=== PATIENT | female | born 2005 | race Caucasian/White ===

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

== ENCOUNTER 2024-01-06 10:17 | Outpatient (REF) | payer MEDICAID, SELFPAY ==
[2024-01-06 11:18] LABS: MANUAL DIFF FLAG NO
[2024-01-06 11:31] LABS: Basophils Percent Auto 0.6 % (0-2); Eosinophils Absolute Auto 0.1 X10*3/uL (0.0-0.4); Eosinophils Percent Auto 1.4 % (0-4); Hematocrit 34.9 % (37.0-47.0); Hemoglobin 11.7 g/dl (12.0-16.0); Imm Gran Abs Auto 0.01 X10*3/uL (0.00-0.03); Imm Gran Pct Auto 0.2 % (0.0-0.4); Lymphocytes Absolute Auto 1.1 X10*3/uL (1.2-4.9); Lymphocytes Percent Auto 21.4 % (20-40); Mean Corpuscular HGB Conc 33.5 g/dl (31.0-35.0); Mean Corpuscular Hemoglobin 28.4 pg (27.0-33.0); Mean Corpuscular Volume 84.7 fL (80.0-98.0); Mean Platelet Volume 9.4 fL (9.4-12.3); Monocytes Absolute Auto 0.4 X10*3/uL (0.1-1.2); Monocytes Percent Auto 8.2 % (2-11); Neutrophils Absolute Auto 3.4 x10*3/uL (2.0-8.3); Neutrophils Percent Auto 68.2 % (45-73); Platelet Count 333 X10*3/uL (160-400); Red Blood Count 4.12 X10*6/uL (4.20-5.50); Red Cell Distribution Width 12.2 % (11.0-16.0)
[2024-01-06 12:27] LABS: Alanine Aminotransferase 14 U/L (0-31); Albumin Level 4.7 g/dL (3.5-5.0); Alkaline Phosphatase 67 U/L (39-117); Anion Gap 11 (12-20); Aspartate Amino Transferase 12 U/L (5-31); Bilirubin Total 0.8 mg/dL (0.0-1.0); Blood Urea Nitrogen 7 mg/dL (9-16); Calcium 9.8 mg/dL (8.4-10.2); Carbon Dioxide 24 mmol/L (22-29); Chloride 106 mmol/L (96-108); Cholesterol 137 mg/dL (<200); Estimated Glomerular Filt Rate > 60; Glucose Random 85 mg/dL (60-115); HDL Cholesterol 36 mg/dL (>40); LDL Cholesterol Calculated 92 mg/dL (<100); Potassium 3.7 mmol/L (3.3-5.1); Sodium 137 mmol/L (135-145); Total Protein 7.9 g/dL (6.5-8.0); Triglycerides 47 mg/dL (<150)
[2024-01-06 12:45] LABS: TSH reflex Free T4 0.84 uIU/mL (0.32-4.0); Vitamin D 25-OH Total 31.1 ng/mL (>30)
[2024-01-06 14:50] LABS: Reflex LDLD? No
[2024-01-07 07:23] LABS: Syphilis Screen Nonreactive (Nonreactive)
[2024-01-07 07:28] LABS: HBS Num1 0.44 mIU/mL (0-7.99); HBc Num1 0.15 S/CO (0.00-0.79); HBsAGNum1 0.35 S/CO (0.00-0.99); HIV AB/AG Nonreactive (Nonreactive); HIV Num 1 0.05 S/CO (0.00-0.99); Hepatitis A Antibody IgM 0.15 Index (0-0.79); Hepatitis B Core Antibody Nonreactive (Nonreactive); Hepatitis B Surface Antigen Negative (Negative); ~HepC Num1 0.13 S/CO (0.00-0.79); ~Hepatitis A Antibody IgM Nonreactive (Nonreactive); ~Hepatitis B Surface Antibody NONREACTIVE (Nonreactive); ~Hepatitis C Antibody Nonreactive (Nonreactive)
== END 2024-01-06 10:18 | disposition home or self-care (01) ==
LOC: HO.HHCL 10:17
PROVIDERS: Visit Provider Internal Medicine
DX: E66.9 Obesity, unspecified (principal); Z30.09 Encounter for other general counseling and advice on contraception
CPT/HCPCS: 36415; 80053; 80061; 82306; 84443; 85025; 86704; 86706; 86709; 86780; 86803; 87340; 87389

== ENCOUNTER 2024-01-28 13:49 | Outpatient (REF) | payer MEDICAID, SELFPAY ==
[2024-01-28 14:57] LABS: Bacterial Vaginosis PCR NEGATIVE (Negative); Candida Group PCR DETECTED (Not Detect); Candida glab krusei PCR NOT DETECTED (Not Detect); Trichomonas vaginalis PCR NOT DETECTED (Not Detect)
[2024-01-28 15:28] LABS: CT PCR NOT DETECTED (Not Detect.); NG PCR NOT DETECTED (Not Detect.)
== END 2024-01-28 13:50 | disposition home or self-care (01) ==
LOC: HO.HHCLNP 13:49
PROVIDERS: Visit Provider General Practice
DX: N89.8 Other specified noninflammatory disorders of vagina (principal)
CPT/HCPCS: 0352U; 87491; 87591

== ENCOUNTER → 2024-06-25 12:17 | Outpatient (BNVA) | payer OTHER, SELFPAY | DX: S61.214A Laceration without foreign body of right ring finger without damage to nail, initial encounter (principal); W26.8XXA Contact with other sharp object(s), not elsewhere classified, initial encounter | CPT/HCPCS: 12001; 99203 ==

== ENCOUNTER → 2024-06-27 15:10 | Outpatient (BNVA) | payer OTHER, SELFPAY | PROVIDERS: Visit Provider Physician Assistant | DX: S61.214A Laceration without foreign body of right ring finger without damage to nail, initial encounter (principal); W26.8XXA Contact with other sharp object(s), not elsewhere classified, initial encounter | CPT/HCPCS: 99213 ==

== ENCOUNTER 2024-07-04 11:07 | Emergency (ER) | payer MEDICAID, SELFPAY ==
--- NOTE | 2024-07-04 | ECG_ITS ---
Test Reason : CHEST PAIN Blood Pressure : */* mmHG Vent. Rate : 109 BPM Atrial Rate : 109 BPM P-R Int : 178 ms QRS Dur : 76 ms QT Int : 320 ms P-R-T Axes : 51 22 55 degrees QTcB Int : 430 ms Sinus tachycardia Otherwise normal ECG When compared with ECG of 12-Apr-2019 11:25, PREVIOUS ECG IS PRESENT Referred By: Generic ED Physician Electronically Signed By: PATT NORMAN MD
--- NOTE | ~2024-07-04 | XR_ITS ---
EXAMINATION: XR CHEST CLINICAL INFORMATION: cough COMPARISON: None available. TECHNIQUE: 2 views of the chest were obtained. FINDINGS: No consolidation, pleural effusion or pneumothorax. Cardiomediastinal silhouette size is normal. Osseous structures are intact. XR/XR chest 2V IMPRESSION: No acute airspace disease. Electronically signed by: West Sellers MD 07/04/2024 12:09 PM [facility]
[2024-07-04 11:43] VITALS: BP 115/78; PULSE 98; RESP 18; TEMP 37.7; O2SAT 100; BMI 35.7
--- NOTE | 2024-07-04 11:44 | ED_ITS ---
HPI - Chest Pain General Chief Complaint: Upper Respiratory Symptoms Stated Complaint: Cp, hurts to breath Time Seen by Provider: 07/04/24 15:50 Source: patient, RN notes reviewed and old records reviewed Mode of arrival: ambulatory History of Present Illness ED Provider: Mariella Mckoy PA-C HPI narrative: 18-year-old female with no significant past medical history presenting to the ED complaining of cough, chest discomfort/SOB associated with coughing, fatigue, generalized weakness, myalgias, chills, sore throat since last night. Also reports right axilla cyst x1 week which is growing. Denies fever, abdominal pain, recent travel, difficulty or inability to swallow, drainage from cyst Related Data Previous Rx's ?Medication ?Instructions ?Recorded cephalexin 500 mg capsule 500 mg PO QID 7 days #28 caps 07/04/24 doxycycline hyclate 100 mg tablet 100 mg PO BID 7 days #14 tabs 07/04/24 oseltamivir 75 mg capsule (Tamiflu) 75 mg PO Q12H 5 days #10 caps 07/04/24 Allergies Allergy/AdvReac Type Severity Reaction Status Date / Time Seasonal Allergies Allergy Mild Nasal Verified 07/04/24 11:47 congestion Review of Systems 2 Review of Systems: Yes all other systems are reviewed and are negative Constitutional: Constitutional: Reports as per [facility] Past Medical History Attestation statement: The following information was validated with the patient. Source: old records reviewed Social History Social History Household Members Other:: Lives w/ mom, dad, brothers - 15, 22 Physical Exam 2 Vital Signs: Vital Signs: Last Vital Signs Temp 99.8 F 07/04/24 11:43 Pulse 98 07/04/24 11:43 Resp 18 07/04/24 11:43 BP 115/78 07/04/24 11:43 Pulse Ox 100 07/04/24 11:43 O2 Del Method Room Air 07/04/24 11:43 BMI result Body Mass Index 35.7 Const: General: cooperative, healthy appearing and no acute distress O rientation/consciousness: patient oriented x3 Limitations: no limitations HEENT: Head: Yes normal to inspection and Yes atraumatic Ears: hearing grossly normal bilaterally and external ears normal General nose exam: Normal external nose present Face and sinus: Yes normal facial exam Mouth: Normal oral and palatal mucosa present and no drooling Throat: Yes posterior oropharynx normal, Yes tonsils normal, Yes uvula midline, No uvula laterally displaced and No uvular edema Eyes: General: appearance normal, both eyes and all related structures EOM: EOMs intact bilaterally Neck: Neck: Yes normal visual inspection and Yes no meningeal signs Resp: Effort & Inspection: normal respiratory effort and no respiratory distress Auscultation: clear to auscultation bilaterally, no crackles, no rales, no rhonchi and no wheezes Cardio: Rate: regular rate Heart sounds: S1 normal heart sound present and S2 normal heart sound present Skin: Other: + small indurated abscess noted to right axilla. Nontender. No overlying erythema/warmth. No fluctuance. Rashes: no rashes Wounds: no wounds Neuro: General: patient oriented x3, tone normal and no meningeal signs C ranial nerves: Yes CN's II-XII intact bilaterally Gait exam (Neuro): Normal gait present Extrem: General: Yes normal to inspection Course Course Course Narrative: This is a Rapid Medical Exam performed in triage by Mariella Mckoy PA-C. Full HPI, ROS and PE to be performed by primary ED provider. 18 yo F presenting to the ED c/o chest pain worse w/coughing/breathing, fatigue, gen weakness, myalgias, chills, sob, sore throat x last night. Also reports right armpit cyst x1 week PE: Uvula midline. Talking in complete sentences, nontoxic appearing. + indurated abscess noted to right axilla. No overlying erythema. Mildly tender to palpation Plan: EKG, labs, CXR, rapid strep, SARs -1550--labs reassuring including negative troponin. -influenza a positive > patient is interested in Tamiflu -chest x-ray unremarkable > with shared decision-making will initiate patient on p.o. antibiotics for indurated abscess and avoid I&D at this time. Recommended warm compresses at home and close follow-up. Results discussed with patient including worrisome signs and symptoms and strict return precautions, and when to return to the emergency department. They verbalized understanding and feel safe for discharge at this time. Medical Decision Making Medical Decision Making [facility] Narrative: 18-year-old female with no significant past medical history presenting to the ED complaining of cough, chest discomfort & SOB associated with coughing, fatigue, generalized weakness, myalgias, chills, sore throat since last night. Also reports right axilla cyst x1 week which is growing. On exam vital signs stable, NAD, nontoxic appearing physical exam as noted above. Concern for viral illness vs pneumonia/bronchitis. Lower suspicion for ACS/PE. Concern for indurated abscess. No overlying cellulitis at this time, I&D not indicated at this time Plan: EKG, labs, viral testing, CXR, rapid strep Please refer to course for remaining clinical decision making, interpretation of labs/imaging results, and discussions with consultants and/or family members. Differential Diagnosis Differential Diagnoses: The differential diagnosis associated with the presentation includes As above Admission/Observation Consideration of admission/observation: Escalation of care including admission/observation considered Lab Data MDM Lab Attestation statement: I reviewed the patient's lab results. 07/04/24 12:36 07/04/24 12:36 Labs: Lab Results 07/04/24 07/04/24 Range/Units 12:35 12:36 WBC 4.1 L (4.8-10.8) X10*3/uL RBC 3.86 L (4.20-5.50) X10*6/uL Hgb 11.3 L (12.0-16.0) g/dl Hct 33.1 L (37.0-47.0) % MCV 85.8 (80.0-98.0) fL MCH 29.3 (27.0-33.0) pg MCHC 34.1 (31.0-35.0) g/dl RDW 12.2 (11.0-16.0) % Plt Count 264 (160-400) X10*3/uL MPV 8.6 L (9.4-12.3) fL Immature Gran % (Auto) 0.2 (0.0-0.4) % Neut % (Auto) 82.6 H (45-73) % Lymph % (Auto) 7.0 L (20-40) % Lipscomb % (Auto) 9.2 (2-11) % Eos % (Auto) 0.5 (0-4) % Baso % (Auto) 0.5 (0-2) % Lymph # (Auto) 0.3 L (1.2-4.9) X10*3/uL Lipscomb # (Auto) 0.4 (0.1-1.2) X10*3/uL Eos # (Auto) 0.0 (0.0-0.4) X10*3/uL Baso # (Auto) 0.0 (0.0-0.2) X10*3/uL Abs Immat Gran (auto) 0.01 (0.00-0.03) X10*3/uL Absolute Neuts (auto) 3.4 (2.0-8.3) x10*3/uL Absolute Nucleated RBC 0.000 (0.0-0.012) X10*3/uL Nucleated RBC % (auto) 0.0 (0.0-0.2) /100WBC PT 13.2 H (10.9-12.4) SEC INR 1.1 (0.9-1.1) Sodium 137 (135-145) mmol/L Potassium 3.8 (3.3-5.1) mmol/L Chloride 106 (96-108) mmol/L Carbon Dioxide 24 (22-29) mmol/L Anion Gap 11 L (12-20) BUN 6 L (9-16) mg/dL Creatinine 0.67 (0.5-1.4) mg/dL Estim Creat Clear Calc 161.4 Estimated GFR > 60 Random Glucose 87 (60-115) mg/dL Calcium 9.4 (8.4-10.2) mg/dL Magnesium 1.8 (1.6-2.6) mg/dL Total Bilirubin 0.4 (0.0-1.0) mg/dL Direct Bilirubin 0.2 (0.0-0.5) mg/dL AST 15 (5-31) U/L ALT 13 (0-31) U/L Alkaline Phosphatase 61 (39-117) U/L Troponin I High Sens < 2.7 (<3.5-17.0) ng/L Total Protein 7.9 (6.5-8.0) g/dL Albumin 4.5 (3.5-5.0) g/dL Influenza Type A (PCR) POSITIVE A (Negative) Influenza Type B (PCR) NEGATIVE (Negative) RSV RNA Qual (PCR) NEGATIVE (Negative) SARS-CoV-2 RNA (RT-PCR) NEGATIVE (Negative) S. pyogenes GrpA ANDREW Negative (Negative) Independent Interpretation I performed an independent interpretation of an: EKG (My Interpretation EKG sinus tachycardia rate of 109. DC interval 170. QRS 76. ) and Plain X-Ray Radiology Impression Discussion of test interpretation with radiology: I have reviewed the radiologist's reading. External Record Review External record reviewed: Inpatient record, Office record, Outpatient record, Prior outpatient labs, Prior outpatient radiology, Primary care record and Outside ED record Tests considered The following testing was considered but not selected: As above Prescription Management I considered prescription management with: Pain Medication, Antiviral and Antibiotic Chronic Conditions Patient?s care impacted by: Other Social Determinants Patient?s care significantly limited by Social Determinants of Health including: Other Social Determinant of Health Discharge Plan Discharge Clinical Impression: Influenza, Abscess Patient Disposition: Home, Self-Care Instructions: Influenza (DC), Abscess (ED) Additional Instructions: You have the flu You are contagious. Wear a mask. Tamiflu as an antiviral medication, please take as prescribed Make sure you are staying hydrated. Drink plenty of fluids. Rest Alternate Tylenol and Motrin at home as needed for body aches and fever Follow-up with your doctor. If symptoms persist or worsen return to the emergency department *If you are a child & not tolerating liquid or urinating for more than 6 hours, or fevers are uncontrolled with medications at home, return to the emergency department* Your blood work was reassuring Please take doxycycline and Keflex which are antibiotics for your abscess. Apply warm compresses 2 to 3 times a day. If area continues to grow, turns red, turns to frias return to the emergency department Prescriptions: New oseltamivir [Tamiflu] 75 mg capsule 75 mg PO Q12H 5 Days Qty: 10 0RF cephalexin 500 mg capsule 500 mg PO QID 7 Days Qty: 28 0RF doxycycline hyclate 100 mg tablet 100 mg PO BID 7 Days Qty: 14 0RF Referrals: Physician,Unknown J [Primary Care Provider] - 3 days Stand Alone Forms: Work/School Release Print Language: Arabic
[2024-07-04 12:40] LABS: MANUAL DIFF FLAG NO
[2024-07-04 12:42] LABS: Basophils Percent Auto 0.5 % (0-2); Eosinophils Percent Auto 0.5 % (0-4); Hematocrit 33.1 % (37.0-47.0); Hemoglobin 11.3 g/dl (12.0-16.0); Imm Gran Abs Auto 0.01 X10*3/uL (0.00-0.03); Imm Gran Pct Auto 0.2 % (0.0-0.4); Lymphocytes Absolute Auto 0.3 X10*3/uL (1.2-4.9); Mean Corpuscular HGB Conc 34.1 g/dl (31.0-35.0); Mean Corpuscular Hemoglobin 29.3 pg (27.0-33.0); Mean Corpuscular Volume 85.8 fL (80.0-98.0); Mean Platelet Volume 8.6 fL (9.4-12.3); Monocytes Absolute Auto 0.4 X10*3/uL (0.1-1.2); Monocytes Percent Auto 9.2 % (2-11); Neutrophils Absolute Auto 3.4 x10*3/uL (2.0-8.3); Neutrophils Percent Auto 82.6 % (45-73); Platelet Count 264 X10*3/uL (160-400); Red Blood Count 3.86 X10*6/uL (4.20-5.50); Red Cell Distribution Width 12.2 % (11.0-16.0); White Blood Count 4.1 X10*3/uL (4.8-10.8)
[2024-07-04 12:47] LABS: INTERNATIONAL NORM RATIO 1.1 (0.9-1.1); Prothrombin Time 13.2 SEC (10.9-12.4)
[2024-07-04 12:55] LABS: IDNOW Serial# 58CA691E; Strep A Nucleic Acid Negative (Negative)
[2024-07-04 12:57] LABS: Alanine Aminotransferase 13 U/L (0-31); Albumin Level 4.5 g/dL (3.5-5.0); Alkaline Phosphatase 61 U/L (39-117); Anion Gap 11 (12-20); Aspartate Amino Transferase 15 U/L (5-31); Bilirubin Direct 0.2 mg/dL (0.0-0.5); Bilirubin Total 0.4 mg/dL (0.0-1.0); Blood Urea Nitrogen 6 mg/dL (9-16); Calcium 9.4 mg/dL (8.4-10.2); Carbon Dioxide 24 mmol/L (22-29); Chloride 106 mmol/L (96-108); Creatinine Clr Calc Pharmacy 161.4; Estimated Glomerular Filt Rate > 60; Glucose Random 87 mg/dL (60-115); Magnesium 1.8 mg/dL (1.6-2.6); Potassium 3.8 mmol/L (3.3-5.1); Sodium 137 mmol/L (135-145); Total Protein 7.9 g/dL (6.5-8.0)
[2024-07-04 13:05] LABS: Troponin-I High Sensitivity < 2.7 ng/L (<3.5-17.0)
[2024-07-04 13:19] LABS: Influenza A PCR POSITIVE (Negative); Influenza B PCR NEGATIVE (Negative); Resp Syncy Virus RNA Qual PCR NEGATIVE (Negative); SARS COV2 PCR INHOUSE NEGATIVE (Negative)
[2024-07-04 16:09] VITALS: BP 116/77; PULSE 92; RESP 18; TEMP 37; O2SAT 97
--- OUTSIDE RECORDS SUMMARY | 2024-07-04 19:06 | XMS_ITS | Clinical Summary ---
Author Organization [employer] Address [address] [facility] [address] [place] [address] Care Team Providers Care Professor Of Languages Name Role Phone Isa Cabrera MD Primary Care Provider + Allergies No known active allergies Medications polyethylene glycol, PEG, 3350 (MiraLax) 17 GM/SCOOP powder 1 capful mixed in 8oz of fluid. drink immediately after. Do this once a day PRN constipation 09/02/19 21 Active fluticasone (Flonase Allergy Relief) 50 MCG/ACT nasal spray Administer 1 spray into each nostril in the morning. Shake gently. Before first use, prime pump. After use, clean tip and replace cap. 16 g 4 10/21/19 23 Active acetaminophen (Tylenol) 500 MG tablet Take 2 tablets (1,000 mg) by mouth every 6 (six) hours if needed for moderate pain or fever for up to 25 doses. 50 tablet 10/21/19 23 Active Additional Information Patient not taking.Reported on 03/20/2024 ulipristal (Xena) 30 mg tabletIndications :Encounter for prescription of emergency contraception TAKE 1 TABLET SOON POSSIBLE WITHIN 5 DAYS AFTER UNPROTECTED SEX OR IF YOU HAD A CONTROL FAILURE. MAY BE TAKEN WITH OR WITHOUT FOOD. 1 tablet 3 11/10/19 24 Active Additional Information Patient not taking.Reported on 04/12/2024 norethindrone (Micronor) 0.35 MG tablet Take 1 tablet (0.35 mg) by mouth Once per day. 90 tablet 3 01/06/20 24 025 Active Additional Information Patient not taking.Reported on 04/12/2024 cetirizine (ZyrTEC) 10 MG tabletIndications :Strep pharyngitis Take 1 tablet (10 mg) by mouth Once per day. 30 tablet 5 04/06/20 24 025 Active Additional Information Patient not taking.Reported on 05/04/2024 Active Problems Problem Noted Date Diagnosed Date Anemia 05/04/2024 Assessment & Plan (05/04/2024 9:21 PM EST): Order b12, ferritin and repeat CBC in 1-2m Vitamin D deficiency 01/28/2024 Encounter for education about contraceptive use 01/06/2024 Assessment & Plan (01/06/2024 10:18 AM EDT): Discussed protective sex at all times, will have STI testing. Discussed hormonal and non hormonal contraceptive methods, she was given information today to take home. She wants to start Progesterone only pill, advised to start it on the first day of her period or the Tuesday after. Continue to use condoms for STI protection and during first week of OCPs. She has Rx for Xena if she happens to be non compliant with OCP. Obesity (BMI 30-39.9) 01/06/2024 Assessment & Plan (05/04/2024 9:21 PM EST): Went over POC from last visit, she's planning to start GYM, still doesn't want nutrition appt FU in 6 mo Assessment & Plan (01/06/2024 10:16 AM EDT): Discussed re weight reduction options including exercise, life style modifications and diet. 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 Recommended to decrease soda and sugary beverage consumption, increase protein intake with meals (at least 1 portion of protein with each meal) to assist with satiety, increase dietary fiber Recommended at least 150 min/week of moderate intensity exercise. Follow up in 2 months. Constipation 07/29/2022 Blood in urine 07/29/2022 BMI (body mass index), pediatric, 95-99% for age 0307/29/2022 Encounters Date Type Department Care Team Description 07/02/2024 Telephone [facility] [address] [place] [phone] Isa Cabrera MD Nurse Triage 05/05/2024 10:20 AM EST Office Visit [facility] [place] [address] [place] [address] Black Oneal MD Acute non-recurrent maxillary sinusitis (Primary Dx) 05/04/2024 10:30 AM EST Office Visit [facility] [address] [place] [address] Estrellita, Omar 04/12/2024 9:00 AM EST Office Visit [facility] [address] [place] [address] Estrellita, Omar 04/06/2024 1:20 PM EST Office Visit [facility] [address] [address] Lesage, Margaret, RADIO DIRECTOR Strep pharyngitis 04/06/2024 Travel from Last 3 Months Immunizations Name Administration Dates Next Due DTaP 11/12/2008, 6,03/02/2005,12/29,2004 HPV 9-Valent 01/21/2016 HPV, Unspecified 01/27/2017 Hep A, ped/adol, 2 dose 04/12/2006,09/14/2005 Hep B, Adolescent or Pediatric 03/02/2005,2004,2004 HiB, unspecified 11/30/2005,2004 Hib (PRP-T) 2004 IPV 11/12/2008, 5,2004,10/27 Influenza Injectable Quadriv alant Preservative Free IIV4 MDCK 02/20/2020 Influenza injectable quadriv alent preservative free 01/27/2021,06/07/2019,06/06/2018 Influenza, injectable, quadr ivalent, preservative free, pediatric 01/27/2017,02/06/2013,01/18/2011,04/08,03/02/2005 MMR 11/12/2008,09/14/2005 Meningococcal MCV4P ACYW-135 01/27/2021,01/21/20 16 Pneumococcal Conjugate PCV 13 03/02/2006 ,11/30/2005,2004,10/27 Tdap 01/21/2016 Varicella 11/12/2008,09/14/2005 Family History Medical History Relation Name Comments discoid lupus Brother Hypertension Father Diabetes Paternal Grandmother Relation Name Status Comments Brother Father Paternal Grandmother Social History Tobacco Use Types Packs/Day Years Used Date Smoking Tobacco: Never Passive Smoke Exposure: Never Smokeless Tobacco: Never Tobacco Cessation:Counseling Given: Not Answered Alcohol Use Standard Drinks/Week Comments Never 0 (1 standard drink = 0.6 oz pur e alcohol) Depression Answer Date Recorded Patient Health Questionnaire-9 Score 10 01/06/2024 Patient Health Questionnaire-9 Score 10 01/06/2024 Last PHQ-9: Questionnaire Data Not on file 0 01/06/2024 Housing Stability Answer Date Recorded What is your housing situation today? I have [facility] 01/06/[address] you li ve. Do you have problems with any of the following? None of the above 01/06/2024 Food Insecurity Answer Date Recorded Within the past 12 months, y ou worried that your food would run out before you got money to buy more: Never True 01/06/2024 Within the past 12 months,th e food you bought just didn't last and you didn't have enough money to get more: Never True 10/2023 Transportation Answer Date Recorded In the past 12 months, has l ack of transportation kept you from medical appts, meetings, work or from getting things needed for daily living? No 01/06/2024 Utilities Answer Date Recorded In the past 12 months, has t he electric, gas, oil or water company threatened to shut off services in your home? No 01/06/2024 Depression Answer Date Recorded Patient Health Questionnaire-2 Score 4 01/06/2024 Internet Access Answer Date Recorded Internet Access Q1 No 01/06/2024 Internet Access Q2 I do not want or need it 10/2023 Comments No Sex and Gender Information Value Date Recorded Sex Assigned at Female 03/01/2022 10:34 AM EDT Legal Sex Female 10:34 AM EDT Gender Identity Female 03/01/2022 10:34 AM EDT Sexual Orientation Straight 07/30/2022 4: 27 PM EDT Last Filed Vital Signs Vital Sign Reading Time Taken Comments Blood Pressure 110/60 05/05/2024 9:33 AM EST Pulse 76 05/05/2024 9:33 AM EST Temperature 37.1 ??C (98.7 ??F) 05/05/2024 9:33 AM ES T Respiratory Rate 20 05/05/2024 9:33 AM EST Oxygen Saturation 96% 04/06/2024 1:10 PM EST Inhaled Oxygen Concentration - - Weight 103 kg (227 lb 8 oz) 05/05/2024 9:[address] Height 167.6 cm (5' 6 ) 05/05/2024 9:33 AM EST Body Mass Index 36.72 05/05/2024 9:33 AM EST Plan of Treatment Health Maintenance Due Date Last Done Comments Family Planning (PISQ) 08/28/2019 COVID-19 Vaccine ( season) 2024 06/27/2021, 01/12/2021, 12/02/2020 Influenza Vaccine (#1) 2024 , 02/20/2020, 06/07/2019, Additional history exists Depression Monitoring (PHQ-9) 07/05/2024 01/06/2024, 01/06/2024 Fluoride Varnish 09/17/2024 03/20/2024 Dental Oral Exam 09/18/2024 03/20/2024 Dental Prophylaxis 09/18/2024 03/20/2024 Depression Screening 01/05/2025 01/06/2024, 01/06/20 24 SDOH Screening 01/05/2025 01/06/2024 Chlamydia and Gonorrhea Screening 01/27/2025 01/28/2024, 01/29/2021 Alcohol/Substance Use Screening 03/09/2025 03/09/2024 Dental X-Ray: Bitewings 03/21/2025 03/20/2024 Tobacco Screening 05/05/2025 05/05/2024 DTaP/Tdap/Td Vaccines (7 - Td or Tdap) 01/20/2026 01/21/2016, 11/12/2008, 11/30/2005, Additional history exists Dental X-Ray: Full Mouth 03/21/2027 03/20/2024 Zoster Vaccines (1 of 2) 2054 RSV Patients and Patients Aged 60 years or older (1 - 1-dose 75+ series) 08/28/2079 Hepatitis B Vaccines Completed 03/02/2005, 2004, 2004 HIB Vaccines Completed 11/30/2005, 12/02, 2004 Pneumococcal Vaccine: Pediatrics (0 to 5 Years) and At-Risk Patients (6 to 49) Years) Completed 03/02/2006, 11/30/2005, 2004, Additional history exists Hepatitis A Vaccines Completed 04/12/2006, 09/15/19 06 IPV Vaccines Completed 11/12/2008, 05/2004, 2004, Additional history exists MMR Vaccines Completed 11/12/2008, 09/14/2005 Varicella Vaccines Completed 11/12/2008, 09/14/2005 HPV Vaccines Completed 01/27/2017, 01/21/2016 Meningococcal Vaccine Completed 01/27/2021, 016 HIV Screening Completed 01/06/2024 Hepatitis C Screening Completed 01/06/2024 RSV under 20 months Aged Out No longe r eligible based on patient's age to complete this topic Rotavirus Vaccines Aged Out No longer eligible based on patient's age to complete this topic Procedures Procedure Name Priority Date/Time Associated Diagnosis Comments POCT COVID-19 AG GHOTRA ID NOW Routine 05/05/2024 9:51 AM EST Acute non-recurrent maxillary sinusitis POCT INFLUENZA A (ID NOW RAPID MOLECULAR) Routine 05/05/2024 9:51 AM EST Acute non-recurrent maxillary sinusitis POCT INFLUENZA B (ID NOW RAPID MOLECULAR) Routine 05/05/2024 9:50 AM EST Acute non-recurrent maxillary sinusitis 29 DO RESIN-BASED COMPOSITE - 2 SURF, POSTERIOR Routine 05/04/2024 10:30 AM EST 30 DO RESIN-BASED COMPOSITE - 2 SURF, POSTERIOR Routine 04/12/2024 9:00 AM EST POCT INFLUENZA B (ID NOW RAPID MOLECULAR) Routine 04/06/2024 1:43 PM EST Strep pharyngitis POCT INFLUENZA A (ID NOW RAPID MOLECULAR) Routine 04/06/2024 1:43 PM EST Strep pharyngitis POC GHOTRA ID NOW STREP A Routine 04/06/2024 1:43 PM EST Strep pharyngitis POCT RAPID COVID ANTIGEN Routine 04/06/2024 1:43 PM EST Strep pharyngitis PROPHYLAXIS - ADULT Routine 03/20/2024 9 :00 AM EST INTRAORAL - COMPLETE SERIES OF RADIOGRAPHIC IMAGES Routine 03/20/2024 9:00 AM EST COMPREHENSIVE ORAL EVALUATION - NEW OR ESTABLISHED PATIENT Routine 03/20/2024 9:00 AM EST TOPICAL APPLICATION OF FLUORIDE VARNISH Routine 03/20/2024 9:00 AM EST CHLAMYDIA/N. GONORRHOEAE RNA, TMA, UROGENITAL Routine 01/28/2024 9:47 AM EDT Discharge from the vagina HEPATITIS PANEL, GENERAL Routine 01/06/2024 10:18 AM EDT Encounter for education about contraceptive use HIV 1/2 ANTIGEN/ANTIBODY, FOURTH GENERATION W/RFL Routine 01/06/2024 10:18 AM EDT Encounter for education about contraceptive use from Last 3 Months or Most Recently Relevant to Health Maintenance Results * POCT Rapid Influenza A GHOTRA ID NOW (05/05/2024 9:51 AM EST) Only the most recent of2 resultswithin the time period is included. Pathologist [facility] Influenza A Negative Negative, Indeterminate [facility] QC Media Lot # [id number] [facility] Lot# Expiration Date [id number] [facility] Swab 05/05/2024 9:51 AM EST Black Oneal MD POINT OF CARE TEST ENTER/EDIT OR DERABLES Final Result [facility] [address] [place] [phone] * POCT Rapid Covid-19 GHOTRA ID NOW (05/05/2024 9:51 AM EST) Pathologist [facility] Coronavirus Antigen PCR Negative Negative, Indeterminate, None Detected, Invalid, Specimen unsatisfactory for evaluation, Weakly Positive QC Media Lot # [id number] Lot# Expiration Date Swab 05/05/2024 9:51 AM EST Black Oneal MD POINT OF CARE TEST ENTER/EDIT OR DERABLES Final Result * POCT Rapid Influenza B GHOTRA ID NOW (05/05/2024 9:50 AM EST) Only the most recent of2 resultswithin the time period is included. [facility] Influenza B Negative Negative, Indeterminate [facility] QC Media Lot # [id number] [facility] Lot# Expiration Date [facility] Swab 05/05/2024 9:50 AM EST Black Oneal MD POINT OF CARE TEST ENTER/EDIT OR DERABLES Final Result Performing Organization Address City/[facility]/ZIP Co de Phone Number [facility] [address] [place] [address] [phone] * (ABNORMAL) POCT rapid strep A manually resulted (04/06/2024 1:43 PM EST) [facility] Rapid Strep A Screen Positive( A) Negative, None Detected [facility] Swab 04/06/2024 1:43 PM EST [facility] RADIO DIRECTOR POINT OF CARE TEST ENTER/EDIT ORDERABLES Final Result Performing Organization Address [facility] Co de Phone Number [facility] [address] [place] [phone] * POCT Rapid COVID Ag (04/06/2024 1:43 PM EST) [facility] Rapid COVID Ag Negative [facility] Swab 04/06/2024 1:43 PM EST [facility] RADIO DIRECTOR POINT OF CARE TEST ENTER/EDIT ORDERABLES Final Result [facility] [address] [place] [phone] * Chlamydia/N. Gonorrhoeae RNA, TMA, Urogenitial (01/28/2024 9:47 AM EDT) CT PCR NOT DETECTED Not Detect. [facility] Comment:A not detected test result does not exclude the possibilityof infection because test results can be affected byimproper specimen collection, concurrent antibiotic therapy,or the number of organisms in the specimen which may bebelow the sensitivity of the test. As with many diagnostictests, results from the Xpert CT/NG assay should beinterpreted in conjunction with other laboratory andclinical data available to the clinician.Xpert CT/NG performance has not been evaluated in patientsless than 14 years of age. The assay should not be used forthe evaluationof suspected sexual abuse or for other medico-legalindications. Additional testing is recommended in anycircumstance when false positive or false negative resultscould lead to adverse medical, social or psychologicalconsequences. NG PCR NOT DETECTED Not Detect. [facility] Comment:A not detected test result does not exclude the possibilityof infection because test results can be affected byimproper specimen collection, concurrent antibiotic therapy,or the number of organisms in the specimen which may bebelow the sensitivity of the test. As with many diagnostictests, results from the Xpert CT/NG assay should beinterpreted in conjunction with other laboratory andclinical data available to the clinician.Xpert CT/NG performance has not been evaluated in patientsless than 14 years of age. The assay should not be used forthe evaluationof suspected sexual abuse or for other medico-legalindications. Additional testing is recommended in anycircumstance when false positive or false negative resultscould lead to adverse medical, social or psychologicalconsequences. Swab Vaginal structure / Unknown 01/28/2024 9:47 AM EDT 01/28/2024 1:52 PM EDT Narrative [facility] - 01/28/2024 3:28 PM EDT Vaginal us Marlene Dueñas MD LAB MICROBIOLOGY - GENERAL ORD ERABLES Final Result Performing Organization Address [facility] Co de Phone Number [facility] [address] [place] [phone] * Hepatitis Panel, General (01/06/2024 10:18 AM EDT) Hepatitis A IgM Nonreactive Nonreactive [facility] Comment:IgM antibodies to RAMIREZ V not detected; does not exclude earlyacute or recovered HAV infection. ~Hepatitis B Surface Antibody NONREACTIVE Nonreactive [facility] Comment:Nonreactive: < 8.00 mIU/mL Hepatitis B Core Antibody Nonreactive Nonreactive [facility] Hepatitis C Antibody Nonreactive Nonreactive [facility] Comment:Antibodies to HCV no t detected; does not exclude early acuteHCV infection. Hepatitis B Surface Ag Negative Negative [facility] Blood 01/06/2024 10:1 8 AM EDT 01/06/2024 11:19 AM EDT us Isa Cabrera MD LAB BLOOD ORDERABLES Fin al Result Performing Organization Address [facility] Co de Phone Number [facility] [address] [place] [phone] * HIV-1/2 Antigen and Antibodies, Fourth Generation, with Reflexes (01/06/2024 10:18 AM EDT) HIV AB/AG Nonreactive Nonreactive [facility] Comment:HIV-1 p24 Ag and/or HIV-1/HIV-2 Ab not detected.A test result that is nonreactive does not exclude thepossibility of exposure to or infection with HIV-1 and/orHIV-2. Nonreactive results in this assay for individualswith prior exposure to HIV-1 and/or HIV-2 may be due toantigen and antibody levels that are below the limit ofdetection of this assay.The Bubbles HIV Ag/Ab Combo assay result andsupplemental assay results should be interpreted inconjunction with the patient's clinical presentation,history and other laboratory results. If the results areinconsistent with clinical evidence, additional testing issuggested to confirm the result. Blood Venous blood specimen / Unknown 01/06/2024 10:18 AM EDT 01/06/2024 11:19 AM EDT Isa Cabrera MD LAB BLOOD ORDERABLES Fin al Result [facility] [address] [place] [phone] from Last 3 Months or Most Recently Relevant to Health Maintenance Insurance [employer] [facility] Care Teams Professor Of Languages Relationship Specialty Start Date End Date Isa Cabrera MD [address] [place] [phone] PCP - General Internal Medicine 11/11/23
--- OUTSIDE RECORDS SUMMARY | 2024-07-04 19:06 | XMS_ITS | Encounter Summary ---
Author Organization [employer] [facility] Address [address] [place] [address] [address] [place] [address] Care Team Providers Care Television News Photographer Name Role Phone Cindy Kruger MD Primary Care Provider [phone] Cindy Kruger MD Primary Care Provider [phone] Ias Cabrera MD Primary Care Provider + Encounter Details Date Type Department Care Team (Late st Contact Info) Description 05/20/2022 Telephone [facility] [address] [place], [place] [phone] Cindy Kruger MD [address] [place] [address] [phone] Social History Tobacco Use Types Packs/Day Years Used Date Smoking Tobacco: Never Assessed Comments Unknown Sex and Gender Information Value Date Recorded Sex Assigned at Female 03/01/2022 10:34 AM EDT Legal Sex Female 10:34 AM EDT Gender Identity Female 03/01/2022 10:34 AM EDT Sexual Orientation Straight 07/30/2022 4: 27 PM EDT documented as of this encounter Plan of Treatment Not on file documented as of this encounter Visit Diagnoses Not on filedocumented in this encounter Care Teams Television News Photographer Relationship Specialty Start Date End Date Cindy Kruger MD [address] [place] [address] [phone] PCP - General Pediatrics 08/16/18 06/02/23 Cindy Kruger MD [address] [place] [address] [phone] PCP - General Pediatrics 06/03/23 11/10/23 Isa Cabrera MD [address] [place] [phone] PCP - General Internal Medicine 11/11/23 documented as of this encounter
--- OUTSIDE RECORDS SUMMARY | 2024-07-04 19:06 | XMS_ITS | Encounter Summary ---
Author Organization [employer] [facility] Address [address] [facility] [address] [place] [address] Care Team Providers Care World History Teacher Name Role Phone Isa Cabrera MD Primary Care Provider + Reason for Visit * Reason Onset Date Comments Nurse Triage 07/02/2024 Encounter Details Date Type Department Care Team ([facility] st Contact Info) Description 07/02/2024 Telephone [facility] [address] [place] [address] Isa Cabrera MD [address] [place] [address] Nurse Triage Social History Tobacco Use Types Packs/Day Years Used Date Smoking Tobacco: Never Passive Smoke Exposure: Never Smokeless Tobacco: Never Alcohol Use Standard Drinks/Week Comments Never 0 [...] PM EDT documented as of this encounter Miscellaneous Notes * Telephone Encounter - Letha Dhaliwal RN - 07/02/2024 11:50 AM EST Call returned to Carina Schumacher to triage below. Reports having an abscess under right axilla x 1 week. Per pt area is pink and warm to touch. Per pt tender to touch. Per pt its very firm. Pt denies any other swollen lymph nodes. Pt daniel any fever. Pt offered appt today, pt declines due to work. Agrees to seek [facility] tomorrow . Reviewed [facility] operating hours and that wait times vary. Reviewed home care advise, ER precautions and reasons to call back. Protocol Used: Skin Lump or Localized Swelling (Adult) Protocol-Based Disposition: See in Office or Video Visit Today Video visit offer not recorded Positive Triage Question: * Swelling is painful to touch and no fever * All higher-acuity triage questions were negative Care Advice Discussed: * Reasons To Call Back - Fever occurs - Spreading redness occurs - You become worse * Telephone Encounter - Tiffani Chirinos - 07/02/2024 11:24 AM EST Symptom: Abscess - Caller Reports Outcome: Schedule a same-day appointment or talk to a nurse or provider today Reason: Caller denied all higher acuity questions The caller accepted this outcome. Contact pt at [phone] documented in this encounter Plan of Treatment Not on file documented as of this encounter Visit Diagnoses Not on filedocumented in this encounter Additional Health Concerns Assessment Noted Time PHQ-9 Depression Total Score: 10 024 9:16 AM EDT documented as of this encounter Care Teams World History Teacher Relationship Specialty Start Date End Date Isa Cabrera MD [address] [place] [phone] PCP - General Internal Medicine 11/11/23 documented as of this encounter
--- OUTSIDE RECORDS SUMMARY | 2024-07-04 19:06 | XMS_ITS | Encounter Summary ---
Author Organization [facility] [employer] [facility] Address [address] [place] [address] Care Team Providers Care Financial Project Manager Name Role Phone Isa Cabrera MD Primary Care Provider + Encounter Details Date Type Department Care Team (Late st Contact Info) Description 01/27/2024 Telephone [facility] [address] [place] [address] Isa Cabrera MD [address] [place], [place] [phone] Social History Tobacco Use Types Packs/Day Years Used Date Smoking Tobacco: Never Smokeless Tobacco: Never Alcohol Use Standard [...] not want or need it 10/2023 Comments Unknown Sex and Gender Information Value [...] documented as of this encounter Care Teams Financial Project Manager Relationship Specialty Start Date End Date Isa Cabrera MD [address] [place] [phone] PCP - General Internal Medicine 11/11/23 documented as of this encounter
== END 2024-07-04 16:09 | disposition home or self-care (01) ==
PROVIDERS: Physician Assistant; Emergency Provider Emergency Medicine
DX: J10.1 Influenza due to other identified influenza virus with other respiratory manifestations (principal); L02.411 Cutaneous abscess of right axilla
CPT/HCPCS: 0241U; 36415; 71046; 80048; 80076; 83735; 84484; 85025; 85610; 87651; 93005; 99283

== ENCOUNTER → 2024-07-04 11:15 | Outpatient (BNV) | payer MEDICAID, SELFPAY | PROVIDERS: Visit Provider Internal Medicine Cardiovascular Disease | DX: R00.0 Tachycardia, unspecified (principal) | CPT/HCPCS: 93010 ==

== ENCOUNTER → 2024-07-04 11:45 | Outpatient (BNV) | payer MEDICAID, SELFPAY | PROVIDERS: Visit Provider Radiology Diagnostic Radiology | DX: R05.9 Cough, unspecified (principal) | CPT/HCPCS: 71046 ==

== ENCOUNTER 2024-07-20 17:58 | Emergency (ER) | payer MEDICAID, SELFPAY ==
[2024-07-20 18:02] VITALS: BP 132/94; PULSE 116; O2SAT 100; BMI 36.1
[2024-07-20 18:07] VITALS: BP 117/71; PULSE 96; RESP 16; TEMP 36.6; O2SAT 99
--- NOTE | 2024-07-20 18:12 | ED.GENADULT ---
HPI - General Adult General Chief complaint: General Medical Stated complaint: syncopal episode at work Time Seen by Provider: 07/20/24 18:12 Source: patient and EMS Mode of arrival: EMS Limitations: no limitations History of Present Illness ED Provider: Francisca Figueroa PA-C HPI narrative: 18 yo female with no significant medical history presents to the ER for evaluation of dizziness, feeling flushed at work after drinking a beverage that contain 50 mg of THC at 3:15 today. Patient does not regularly use marijuana products and feels very high. She felt like she was going to pass out so she sat down and her friend called 911. She reports feeling heat on the back of her neck. She has some mild dizziness. No chest pain, SOB, abdominal pain, N/V/D. MD complaint: dizziness, feeling hot after marijuana use Onset (ago): hour(s) Associated symptoms: confusion and weakness Treatments prior to arrival: none Related Data Previous Rx's ?Medication ?Instructions ?Recorded cephalexin 500 mg capsule 500 mg PO QID 7 days #28 caps 07/04/24 doxycycline hyclate 100 mg tablet 100 mg PO BID 7 days #14 tabs 07/04/24 oseltamivir 75 mg capsule (Tamiflu) 75 mg PO Q12H 5 days #10 caps 07/04/24 Allergies Allergy/AdvReac Type Severity Reaction Status Date / Time Seasonal Allergies Allergy Mild Nasal Verified 07/20/24 18:04 congestion Review of Systems Review of Systems: Yes all other systems are reviewed and are negative PMFSH Social History Social History Household Members Other:: Lives w/ mom, dad, brothers - 15, 22 Smoked in Last 30 Days: No Use of substances other than those prescribed or required for medical reasons: Yes Substance Use Type: Marijuana Advance Directives: No Advance Directives Information Provided: Yes Do you have a plan to hurt others: No Plan Patient : No Physical Exam ED Vital Signs: Vital Signs - 24 hr 07/20/24 18:07 07/20/24 19:48 Temperature 97.9 F 98.2 F Pulse Rate 96 105 H Respiratory Rate 16 16 Blood Pressure 117/71 147/74 H Pulse Oximetry 99 98 Oxygen Delivery Method Room Air Room Air BMI result Body Mass Index 36.1 Appearance: Alert. Oriented X3. No acute distress. Head: normocephalic, atraumatic. Eyes: Pupils equal, round and reactive to light. scleral injection bilaterally. ENT: Pharynx normal. No tonsillar swelling or exudate. Neck: Normal inspection. Neck supple. CVS: tachycardic, heart rate low 100s, regular rhythm, no murmur Pulses normal. Respiratory: No respiratory distress. Breath sounds normal. Abdomen: Soft and nontender. +BS x4 Skin: Skin warm and dry. Normal skin color. Normal skin turgor. No rashes. Extremities: No lower extremity edema. No joint swelling. Neuro/psych: Oriented X 3. No motor deficit. No sensory deficit. CN II-XII intact. intermittently slowed speech and cognition. Course Course Course Narrative: -2027-- on re-evaluation patient reports symptomatic improvement, family at bedside, feels safe for discharge home at this time Results discussed with patient including worrisome signs and symptoms and strict return precautions, and when to return to the emergency department. They verbalized understanding and feel safe for discharge at this time. Medical Decision Making Medical Decision Making [facility] Narrative: 18-year-old female presents to the ER feeling flushed, dizzy with heat on the back of her neck after she ingested 50 mg drink of THC. She does not regularly use marijuana. Vital signs are stable. She appears high on marijuana. Nonfocal neurologically. Physical exam is unremarkable. Given water and an ice pack. Will observe in the ER and plan to discharge once symptomatically improved. Parents at the bedside and plan discussed with them Differential Diagnosis Differential Diagnoses: The differential diagnosis associated with the presentation includes panic attack, anxiety attack, polysubstance abuse, marijuana intoxication Independent Historian Clinical information obtained from an independent historian. History obtained from or confirmed by: Parent and EMS External Record Review External record reviewed: Prior outpatient labs Tests considered The following testing was considered but not selected: considered lab workup and EKG however no clinical need at this time Critical Care Time Critical Care Time Critical Care Time: No Discharge Plan Discharge Clinical Impression: Cannabis intoxication Patient Disposition: Still a Patient Instructions: Cannabis Abuse (ED) Additional Instructions: do not use marijuana products in excess follow up with your doctor as needed If you develop new or worsening symptoms call 911 or come back to the ER for further evaluation. Prescriptions: No Action oseltamivir [Tamiflu] 75 mg capsule 75 mg PO Q12H 5 Days Qty: 10 0RF cephalexin 500 mg capsule 500 mg PO QID 7 Days Qty: 28 0RF doxycycline hyclate 100 mg tablet 100 mg PO BID 7 Days Qty: 14 0RF Stand Alone Forms: Work/School Release Print Language: Turkish
--- NOTE | 2024-07-20 19:00 | PC.NURSE ---
assumed care of patient, family at bedside no apparent distress food and drinks given.
[2024-07-20 19:48] VITALS: BP 147/74; PULSE 105; RESP 16; TEMP 36.8; O2SAT 98
[2024-07-20 20:44] VITALS: BP 147/74; PULSE 105; RESP 16; TEMP 36.8; O2SAT 98
== END 2024-07-20 20:44 | disposition home or self-care (01) ==
PROVIDERS: Emergency Provider Emergency Medicine
DX: F12.929 Cannabis use, unspecified with intoxication, unspecified (principal); R55 Syncope and collapse; R42 Dizziness and giddiness; T40.715A Adverse effect of cannabis, initial encounter; Y92.9 Unspecified place or not applicable
CPT/HCPCS: 99282; 99284

== ENCOUNTER 2024-09-14 06:08 | Emergency (ER) | payer MEDICAID, SELFPAY ==
[2024-09-14 06:10] VITALS: BP 120/78; PULSE 84; RESP 16; TEMP 37.2; O2SAT 99; BMI 33.1
--- NOTE | 2024-09-14 06:20 | ED.GENADULT ---
HPI - General Adult General Chief complaint: Animal Bite Stated complaint: tick bite Time Seen by Provider: 09/14/24 06:20 Source: patient Mode of arrival: ambulatory Limitations: no limitations History of Present Illness ED Provider: HPI narrative: Patient was in [place] and noticed 2 ticks on her pain and in the car woke up in the morning with 2 bite saravia on the lower back has not seen any tick on her body as such afraid that most likely has a tick bite Related Data Previous Rx's ?Medication ?Instructions ?Recorded cephalexin 500 mg capsule 500 mg PO QID 7 days #28 caps 07/04/24 doxycycline hyclate 100 mg tablet 100 mg PO BID 7 days #14 tabs 07/04/24 oseltamivir 75 mg capsule (Tamiflu) 75 mg PO Q12H 5 days #10 caps 07/04/24 Allergies Allergy/AdvReac Type Severity Reaction Status Date / Time Seasonal Allergies Allergy Mild Nasal Verified 09/14/24 06:12 congestion Review of Systems Review of Systems: Yes all other systems are reviewed and are negative [facility] Social History Social History Household Members Other:: Lives w/ mom, dad, brothers - 15, 22 Substance Use Type: Marijuana Advance Directives: No Do you have a plan to hurt others: No Plan Physical Exam ED Vital Signs: Vital Signs - 24 hr 09/14/24 06:10 Temperature 99.0 F Pulse Rate 84 Respiratory Rate 16 Blood Pressure 120/78 Pulse Oximetry 99 Oxygen Delivery Method Room Air BMI result Body Mass Index 33.1 Appearance: Alert. Oriented X3. No acute distress. ENT: Pharynx normal. Oral Mucosa moist Neck: Normal inspection. Neck supple. CVS: Normal heart rate and rhythm. Pulses normal. Respiratory: No respiratory distress. Equal air entry bilateral, no wheezing/rales/rhonchi Abdomen: Soft and nontender. Bowel sounds are present, no mass palpable, no CVA tenderness Skin: Skin warm and dry. Small bite mario in the lower back no bull's eye sign Extremities: No lower extremity edema. No calf tenderness Neuro: Oriented X 3. Medical Decision Making Medical Decision Making MDM Narrative: Patient insisted for treatment for the tick bite although there is no evidence that she had engorged tick Discharge Plan Discharge Clinical Impression: Tick bite Patient Disposition: Home, Self-Care Instructions: Tick Bite (ED) Additional Instructions: Is very unlikely that you will have Lyme disease from assumed tick bite You have been given prophylaxis treatment in the ED Follow up with your PCP as needed Prescriptions: No Action oseltamivir [Tamiflu] 75 mg capsule 75 mg PO Q12H 5 Days Qty: 10 0RF cephalexin 500 mg capsule 500 mg PO QID 7 Days Qty: 28 0RF doxycycline hyclate 100 mg tablet 100 mg PO BID 7 Days Qty: 14 0RF Print Language: Luxembourger
--- OUTSIDE RECORDS SUMMARY | 2024-09-14 06:26 | XMS_ITS | Encounter Summary ---
Author Organization [employer] Address [address] [facility] [address] [place] [address] Care Team Providers Care Rubber Ball Finisher Name Role Phone Cindy Kruger MD Primary Care Provider [phone] Cindy Kruger MD Primary Care Provider [phone] Isa Cabrera MD Primary Care Provider + Encounter Details Date Type Department Care Team (Late st Contact Info) Description 05/20/2022 Telephone [facility] [address] [place], [place] [phone] Cindy Kruger MD [address] [place], [place] [phone] Social History Tobacco Use Types Packs/Day Years [...] on filedocumented in this encounter Care Teams Rubber Ball Finisher Relationship Specialty Start Date End Date Cindy Kruger MD [address] [place] [address] [phone] PCP - General Pediatrics 08/16/18 06/02/23 Cindy Kruger MD [address] [place] [address] [phone] PCP - General Pediatrics 06/03/23 11/10/23 Isa Cabrera MD [address] [place] [phone] PCP - General Internal Medicine 11/11/23 documented as of this encounter
--- OUTSIDE RECORDS SUMMARY | 2024-09-14 06:26 | XMS_ITS | Encounter Summary ---
Author Organization [employer] Address [address] [place] [address] Care Team Providers Care Healthcare Consultant Name Role Phone Isa Cabrera MD Primary Care Provider + Encounter Details Date Type Department Care Team (Late st Contact Info) Description 01/27/2024 Telephone [facility] [address] [place] [address] Isa Cabrera MD [address] [place] [address] Social History Tobacco Use Types Packs/Day Years [...] is your housing situation today? I have [facility] [place] 01/06/[address] you [...] documented as of this encounter Care Teams Healthcare Consultant Relationship Specialty Start Date End Date Isa Cabrera MD [address] [place] [phone] PCP - General Internal Medicine 11/11/23 documented as of this encounter
--- OUTSIDE RECORDS SUMMARY | 2024-09-14 06:26 | XMS_ITS | Clinical Summary ---
Author Organization [employer] Address [address] [facility] [address] [place] [address] Care Team Providers Care Network Relay Tester Name Role Phone Isa Cabrera MD Primary [...] mouth Once per day. 30 tablet 5 07/28/19 25 025 Active hydrOXYzine HCl (Atarax) 25 MG tabletIndications :Urticaria Take 1 tablet (25 mg) by mouth every 8 (eight) hours if needed for itching or allergies for up to 10 days. 30 tablet 07/28/19 25 Active Active Problems Problem Noted Date Diagnosed Date Urticaria 07/27/2024 Assessment & Plan (07/27/2024 5:58 PM EDT): Initiate cetirizine, may alternate bendryol or hydroxyzine q 4-6 hours over weekend (which ever agent pt prefers) Consider oral prednisone if symptoms do not improve Referral to allergy Anemia 05/04/2024 Assessment & Plan (05/04/2024 9:21 [...] diet. 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 Recommended to decrease soda [...] Encounters Date Type Department Care Team Description 07/30/[address] [facility] [address] [place] [address] [phone] Isa Cabrera MD 07/27/2024 3:40 PM EDT Office Visit [facility] [address] [place] [address] [phone] Gaby Villalobos NP Urticaria (Primary Dx); Strep pharyngitis 07/27/[address] [facility] [address] [place] [phone] Clara Leyva, machine bander and cellophaner helper (INC triage) 07/27/[address] [facility] [address] [place] [address] [phone] Isa Cabrera MD Nurse Triage 07/13/2024 Population Health Risk Score [facility] (C[facility]) Department [address] [phone] Provider, Population Health Generic 07/02/[address] [facility] [address] [place] [address] [phone] Isa Cabrera MD Nurse Triage from Last 3 Months Immunizations Immunization Administration Dates Next Due DTaP 11/12/2008, 6,03/02/2005,12/29,2004 [...] Sign Reading Time Taken Comments Blood Pressure 130/70 07/27/2024 2:39 PM EDT Pulse 93 07/27/2024 2:39 PM EDT Temperature 37.1 ??C (98.8 ??F) 07/27/2024 2:39 PM ED T Respiratory Rate 20 07/27/2024 2:39 PM EDT Oxygen Saturation 98% 07/27/2024 2:39 PM EDT Inhaled Oxygen Concentration - - Weight 99.4 kg (219 lb 3.2 oz) 07/27/2024 2:39 P M EDT Height 167.6 cm (5' 6 ) 07/27/2024 2:39 PM EDT Body Mass Index 35.38 07/27/2024 2:39 PM EDT Plan of Treatment Health Maintenance Due Date Last Done Comments Family Planning (PISQ) 08/28/2019 Meningococcal B Vaccine (1 of 2 - Standard) 2020 COVID-19 Vaccine ( season) 2024 06/27/2021, 01/12/2021, 12/02/2020 Influenza Vaccine (#1) 2024 , 02/20/2020, 06/07/2019, Additional history exists Dental Oral Exam 09/18/2024 03/20/2024 Dental Prophylaxis 09/18/2024 03/20/2024 Depression Screening 01/05/2025 01/06/2024, 01/06/20 SDOH Screening 01/05/2025 01/06/2024 Chlamydia and Gonorrhea Screening 01/27/2025 01/28/2024, 01/29/2021 Alcohol/Substance Use Screening 03/09/2025 03/09/2024 Dental X-Ray: Bitewings 03/21/2025 03/20/2024 Tobacco Screening 07/27/2025 07/27/2024 DTaP/Tdap/Td Vaccines (7 - Td or Tdap) 01/20/2026 01/21/2016, 11/12/2008, 11/30/2005, Additional history exists Dental X-Ray: Full Mouth 03/21/2027 03/20/2024 Lipid Panel 01/05/2029 01/06/2024 Zoster Vaccines (1 of 2) 2054 RSV [...] Completed 11/12/2008, 05/2004, 2004, Additional history exists HPV Vaccines Completed 01/27/2017, 01/21/2016 Meningococcal Vaccine Completed 01/27/2021, 016 HIV Screening Completed 01/06/2024 Hepatitis C Screening Completed 01/06/2024 RSV under 20 months Aged Out No longe r eligible based on patient's age to complete this topic Rotavirus Vaccines Aged Out No longer eligible based on patient's age to complete this topic Procedures Procedure Name Priority Date/Time Associated Diagnosis Comments PROPHYLAXIS - ADULT Routine 03/20/2024 9 :00 AM EST INTRAORAL - COMPLETE SERIES OF RADIOGRAPHIC IMAGES Routine 03/20/2024 9:00 AM EST COMPREHENSIVE ORAL EVALUATION - NEW OR ESTABLISHED PATIENT Routine 03/20/2024 9:00 AM EST CHLAMYDIA/N. GONORRHOEAE RNA, TMA, UROGENITAL Routine 01/28/2024 9:47 AM EDT Discharge from the vagina HEPATITIS PANEL, GENERAL Routine 01/06/2024 10:18 AM EDT Encounter for education about contraceptive use HIV 1/2 ANTIGEN/ANTIBODY, FOURTH GENERATION W/RFL Routine 01/06/2024 10:18 AM EDT Encounter for education about contraceptive use LIPID PANEL WITH REFLEX TO DIRECT LDL Routine 01/06/2024 10:18 AM EDT Obesity (BMI 30-39.9) from Last 3 Months or Most Recently Relevant to Health Maintenance Results * Chlamydia/N. Gonorrhoeae RNA, TMA, Urogenitial (01/28/2024 9:47 AM EDT) CT PCR NOT DETECTED Not Detect. [facility] Comment:A not detected test result [...] psychologicalconsequences. NG PCR NOT DETECTED Not Detect. [facility] Comment:A not detected test result [...] AM EDT 01/28/2024 1:52 PM EDT Narrative [facility] - 01/28/2024 3:28 PM EDT Vaginal us Marlene Dueñas MD LAB MICROBIOLOGY - GENERAL ORD ERABLES Final Result Performing Organization Address [facility] Co de Phone Number [facility] [address] [place] [address] [phone] * (ABNORMAL) Lipid Panel with Reflex to Direct LDL (01/06/2024 10:18 AM EDT) Triglycerides 47 <150 mg/dL [facility] Comment:Desirable Triglyceri de: less than 90 mg/dLBorderline High Triglyceride: 90-129 mg/dLHigh Triglyceride: greater than 130 mg/dL Cholesterol 137 <200 mg/dL [facility] Comment:Desirable Cholestero l: less than 170 mg/dLBorderline High Cholesterol: 170-199 mg/dLHigh Cholesterol: greater than 200 mg/dL LDL Cholesterol Calculated 92 <100 mg/dL [facility] Comment:Desirable LDL: less than 110 mg/dLBorderline LDL: 110-129 mg/dLHigh LDL: greater than or equal to 130 mg/dL HDL Cholesterol 36(L) >40 mg/dL [facility] Comment:Desirable HDL: great er than 45 mg/dLBorderline HDL: 40-45 mg/dLLow HDL: less than 40 mg/dL Note: This HDL assay may give artificially low results in patients with liver disease. Blood 01/06/2024 10:1 8 AM EDT 01/06/2024 11:19 AM EDT us Isa Cabrera MD LAB BLOOD ORDERABLES Fin al Result Performing Organization Address City/[facility]/ZIP Co de Phone Number [facility] [address] [place] [address] [phone] Hepatitis Panel, General (01/06/2024 10:18 AM EDT) Hepatitis A IgM Nonreactive Nonreactive [facility] Comment:IgM antibodies to RAMIREZ V not detected; does not exclude earlyacute or recovered HAV infection. ~Hepatitis B Surface Antibody NONREACTIVE Nonreactive [facility] Comment:Nonreactive: < 8.00 mIU/mL Hepatitis B Core Antibody Nonreactive Nonreactive [facility] Hepatitis C Antibody Nonreactive Nonreactive [facility] Comment:Antibodies to HCV no t detected; does not exclude early acuteHCV infection. Hepatitis B Surface Ag Negative Negative [facility] Blood 01/06/2024 10:1 8 AM EDT 01/06/2024 11:19 AM EDT us Isa Cabrera MD LAB BLOOD ORDERABLES Fin al Result [facility] [address] [place] [phone] * HIV-1/2 Antigen and Antibodies, Fourth Generation, with Reflexes (01/06/2024 10:18 AM EDT) HIV AB/AG Nonreactive Nonreactive [facility] Comment:HIV-1 p24 Ag and/or HIV-1/HIV-2 Ab not detected.A test result that is nonreactive does not exclude thepossibility of exposure to or infection with HIV-1 and/orHIV-2. Nonreactive results in this assay for individualswith prior exposure to HIV-1 and/or HIV-2 may be due toantigen and antibody levels that are below the limit ofdetection of this assay.The [employer] HIV Ag/Ab Combo assay result andsupplemental assay results should be interpreted inconjunction with the patient's clinical presentation,history and other laboratory results. If the results areinconsistent with clinical evidence, additional testing issuggested to confirm the result. Blood Venous blood specimen / Unknown 01/06/2024 10:18 AM EDT 01/06/2024 11:19 AM EDT us Isa Cabrera MD LAB BLOOD ORDERABLES Fin al Result [facility] [address] [place] [address] [phone] from Last 3 Months or Most Recently Relevant to Health Maintenance Insurance [facility] C3 Member Subscriber Plan / Payer (Ef fective 2022-Present) Name:Carina Hutson Relation to Subscriber:Self Name:Carina Hutson Payer ID:Not on file Group ID:Not on file Type:Medicaid Address: [place] [id number] [place] [address] C3 DENTAL-[facility] MEDICAID STAND CHILD Care Teams Network Relay Tester Relationship Specialty Start Date End Date Isa Cabrera MD [address] [place] [phone] PCP - General Internal Medicine 11/11/23
[2024-09-14] MEDS: Doxycycline Monohydrate 100 MG CAPSULE 200 MG PO (06:38)
[2024-09-14 06:40] VITALS: BP 120/78; PULSE 84; RESP 16; TEMP 37.2; O2SAT 99
== END 2024-09-14 06:41 | disposition home or self-care (01) ==
PROVIDERS: Emergency Provider Internal Medicine
DX: S30.860A Insect bite (nonvenomous) of lower back and pelvis, initial encounter (principal); W57.XXXA Bitten or stung by nonvenomous insect and other nonvenomous arthropods, initial encounter; Y93.9 Activity, unspecified; Y92.9 Unspecified place or not applicable; Y99.9 Unspecified external cause status
CPT/HCPCS: 99282; 99283